=== PATIENT | male | born 1985 | race Caucasian/White ===

== ENCOUNTER 2020-12-03 13:28 | Emergency (ER) | payer OTHER, SELFPAY ==
[2020-12-03 13:53] VITALS: BP 151/98; PULSE 99; RESP 20; TEMP 36.7; O2SAT 97
--- NOTE | 2020-12-03 14:17 | ED.SKABFB ---
HPI - Skin/Abscess/Foreign Bdy General Chief complaint: Skin/Abscess/Foreign Body Stated complaint: Possible staph infection Source: patient Mode of arrival: ambulatory Limitations: no limitations History of Present Illness HPI narrative: This is a 35-year-old gentleman that has some skin lesions with no drainage with erythema located on his chest area, the patient does shave his chest and does not have any fever or chills currently no drainage from the abscess sites with no shortness of breath no nausea vomiting no abdominal pain. MD complaint: abscess/boil Onset (ago): day(s) Location: chest Severity: mild Review of Systems Review of Systems: All systems reviewed & are unremarkable except as noted in HPI and below PMFSH Past Medical History Medical History Patient denies medical problems Social History Social History Gender identity (if verbalized by the patient): Male Exam Const: General: no acute distress Orientation/consciousness: patient oriented x3 HENMT: Head: normal to inspection Eyes: Conjunctivae: conjunctivae normal Pupils: Equal, round and reactive pupils present Direct Ophthalmoscopy: no photophobia Neck: Neck: normal visual inspection, no lymphadenopathy and no meningeal signs Chest: Chest palpation & inspection: normal inspection of the chest Resp: Effort & Inspection: normal respiratory effort Auscultation: clear to auscultation bilaterally Cardio: Rate: regular rate Rhythm: regular rhythm GI: Inspection: distended Back/Spine/Pelvis: Back: no CVA tenderness Skin: Other: abscess areas on his chest area with no drainage with an area of erythema. Neuro: General: patient oriented x3 Extrem: General: normal to inspection and no pedal edema Psych: Mental Status: mental status grossly normal Affect: normal affect Course Course Emergency Course: Patient received IM ceftriaxone and triple antibiotic ointment Vital Signs Vital signs: Vital Signs Temperature 36.7 C 12/03/20 13:53 Pulse Rate 99 12/03/20 13:53 Respiratory Rate 12/03/20 13:53 Blood Pressure 151/98 H 12/03/20 13:53 Pulse Oximetry 97 12/03/20 13:53 Temperature 36.7 C 12/03/20 13:53 Pulse Rate 99 12/03/20 13:53 Respiratory Rate 20 12/03/20 13:53 Blood Pressure 151/98 H 12/03/20 13:53 Pulse Oximetry 97 12/03/20 13:53 Critical Care Time Critical Care Time Critical Care Time: No Discharge Plan Discharge Clinical Impression: Folliculitis Patient Disposition: Home, Self-Care Condition: Stable Instructions: Antibiotic Form, Folliculitis (ED) Additional Instructions: take medicine as prescribed and follow-up with primary care physician within 1 to 2 weeks if symptoms persist or worsen. Prescriptions: New amoxicillin-pot clavulanate [Augmentin] 875-125 mg tablet 1 tablet PO Q12H Qty: 20 RF: 0 mupirocin 2 % ointment 1 applic topical TID 7 Days Qty: 15 RF: 0 Follow-up/Referrals: UNKNOWN,DOCTOR [Primary Care Provider] - Time of Disposition: 14:24
[2020-12-03] MEDS: LIDOCAINE HCL 1% LOCAL INJ 20 ML VIAL (14:28)
[2020-12-03] MEDS: cefTRIAXone 1 GM VIAL IM (14:28)
[2020-12-03] MEDS: NEOMYCIN/POLYMYXIN/BACITRACIN OINTMENT PACKET 1 PACKET TOPICAL (14:28)
[2020-12-03 14:52] VITALS: BP 134/88; PULSE 94; RESP 20; TEMP 36.8; O2SAT 98
== END 2020-12-03 15:09 | disposition home or self-care (01) ==
PROVIDERS: Emergency Provider Emergency Medicine
DX: L73.9 Follicular disorder, unspecified (principal)
CPT/HCPCS: 96372; 99283; J0696

== ENCOUNTER 2021-08-06 19:28 | Emergency (ER) | payer OTHER, SELFPAY ==
--- NOTE | 2021-08-06 19:36 | ED.SKABFB ---
HPI - Skin/Abscess/Foreign Bdy General Chief complaint: Extremity Problem,Nontraumatic Stated complaint: bite on leg Time Seen by Provider: 08/06/21 19:33 Source: patient, family and RN notes reviewed Mode of arrival: ambulatory Limitations: no limitations History of Present Illness complaint: insect bite/sting Onset (ago): day(s) (1) Location: RLE (mid posterior calf) Severity: moderate Quality: burning, aching and pruritic Pain Consistency: constant Relieving factors: none Exacerbating factors: palpation Context: other ( possible spider bite) Associated symptoms: denies other symptoms Treatments prior to arrival: other ( scratched at it until it is draining clear fluid) Related Data Home Medications Medication Instructions Recorded Confirmed No Home Medications 08/06/21 08/06/21 Allergies Allergy/AdvReac Type Severity Reaction Status Date / Time No Known Allergies Allergy Verified 12/03/20 14:35 Review of Systems Review of Systems: All systems reviewed & are unremarkable except as noted in HPI and below PMFSH Past Medical History Medical History (Updated 08/06/21 @ 19:51 by Jimmy Early MD) Patient denies medical problems Surgical History Surgical History (Updated 08/06/21 @ 19:37 by Jimmy Early MD) H/O skin graft Social History Social History (Updated 08/06/21 @ 19:37 by Jimmy Early MD) Smoking status: Never smoker Substance use: never Gender identity (if verbalized by the patient): Male Exam Const: General: healthy appearing, no acute distress and alert Nutritional Appearance: well nourished Orientation/consciousness: patient oriented x3 HENMT: Head: normal to inspection Ears: external ears normal Eyes: Conjunctivae: conjunctivae normal Pupils: Equal, round and reactive pupils present EOM: EOMs intact bilaterally Neck: Neck: normal visual inspection Resp: Effort & Inspection: normal respiratory effort Auscultation: clear to auscultation bilaterally Cardio: Rate: regular rate Rhythm: regular rhythm GI: Auscultation: normal bowel sounds Back/Spine/Pelvis: Cervical Spine: cervical ROM normal Thoracic/Lumbar Spine: thoraco-lumbar ROM normal Skin: General skin exam: normal color Lesions: lesion noted wheal right posterior lower leg size (3.5 cm in diameter), borders well-defined, consistency firm, surface indurated, warm and other ( Excoriated with clear serous drainage) and tender Neuro: General: patient oriented x3, moves all extremities, no focal motor deficits and CN's II-XI intact bilaterally Speech: normal speech Gait exam (Neuro): Normal gait present Extrem: General: normal to inspection and no clubbing, cyanosis or edema Psych: Appearance: grossly normal and well kempt Mental Status: mental status grossly normal Affect: normal affect Attitude: cooperative Thought content: Yes Normal thought content present Discharge Plan Discharge Clinical Impression: Spider bite Qualifiers: Encounter type: initial encounter Injury intent: accidental or unintentional Qualified Code(s): T63.301A - Toxic effect of unspecified spider venom, accidental (unintentional), initial encounter Patient Disposition: Home, Self-Care Condition: Stable Instructions: Brown Recluse Spider Bite (ED) Additional Instructions: cool compresses as needed. Can use Benadryl, or Zyrtec 10 mg [id number]( 1 daily). Tylenol and or Motrin as needed for pain. Follow-up with your primary care physician any worsening or changes in appearance. Any thick pus drainage or streaking up the leg return to the emergency room. Prescriptions: No Action No Home Medications RF: 0 Follow-up/Referrals: UNKNOWN,DOCTOR [Primary Care Provider] - Time of Disposition: 19:51
[2021-08-06 19:37] VITALS: BP 140/89; PULSE 100; RESP 20; TEMP 36.4; O2SAT 100
[2021-08-06 19:55] VITALS: BP 136/80; PULSE 90; RESP 18; TEMP 36.6; O2SAT 100
== END 2021-08-06 19:56 | disposition home or self-care (01) ==
PROVIDERS: Emergency Provider Emergency Medicine
DX: T63.301A Toxic effect of unspecified spider venom, accidental (unintentional), initial encounter (principal)
CPT/HCPCS: 99281

== ENCOUNTER 2021-08-08 22:14 | Emergency (ER) | payer OTHER, SELFPAY ==
[2021-08-08 22:18] VITALS: BP 135/78; PULSE 106; RESP 14; TEMP 36.4; O2SAT 100
[2021-08-09] MEDS: HYDROcodone/acetaminophen (*CRX) 5-325 MG TABLET 1 TAB PO (02:22)
[2021-08-09 02:37] VITALS: BP 147/98; PULSE 89; RESP 16; O2SAT 100
--- NOTE | 2021-08-09 03:18 | ED.SKABFB ---
HPI - Skin/Abscess/Foreign Bdy General Chief complaint: Skin/Abscess/Foreign Body <ZAHRA Hampton Last Filed: 08/09/21 03:23> Stated complaint: abscess, spider bite <ZAHRA Hampton Last Filed: 08/09/21 03:23> Time Seen by Provider: 08/09/21 01:27 <ZAHRA Hampton Last Filed: 08/09/21 03:23> History of Present Illness HPI narrative: 36-year-old male here for evaluation of right calf pain and redness with central area of drainage for the past 2 days. States area drained some yellow material yesterday, is now crusted over today. Patient has been trying ibuprofen without good relief of his pain. States he believes he got bit by a spider, although he did not see a spider bite or have any known trauma to the skin. Tetanus up-to-date as of 2 years ago. Denies fevers, chills, nausea, vomiting. No history of diabetes or IV drug use. <ZAHRA Hampton Last Filed: 08/09/21 03:23> Related Data Allergies/Adverse reactions: Allergies Allergy/AdvReac Type Severity Reaction Status Date / Time No Known Allergies Allergy Verified 08/08/21 22:15 <ZAHRA Hampton Last Filed: 08/09/21 03:23> Review of Systems Review of Systems: Gen.: Denies fevers or chills Eyes: Denies eye pain or visual change ENT: Denies congestion Respiratory: Denies shortness of breath or cough CV: Denies chest pain or palpitations GI: Denies abdominal pain nausea, emesis or diarrhea denies burning, urgency, frequency or hematuria Musculoskeletal: Denies back pain or muscle pain Neuro: Denies numbness, tingling, weakness or focal weakness Skin: Reports redness of right calf. Except as documented, all other systems reviewed and negative <ZAHRA Hampton Last Filed: 08/09/21 03:23> Exam Narrative: Gen: Alert, oriented, no acute distress. Eyes: EOMI, no icterus Pulm: Respirations even and unlabored, symmetric thorax expansion, no audible stridor or visible cyanosis CV: No murmurs. Regular rate. GI: No distension, no voluntary/involuntary guarding Neuro: AOx4, moves all extremities without apparent difficulty or weakness, follows commands Skin: Right calf has large area of erythema extending from mid calf down to his foot. There is a round, central opening with yellow crusted serous discharge no underlying wounds or induration. No fluid pocket visualized on [id number] ultrasound. Psych: Normal mood/affect, insight/judgement good, adequate fund of knowledge, recent/remote memory intact <Dena Weeks PA-C - Last Filed: 08/09/21 03:23> Course BITUMASTIC APPLIER/PA Physician Supervision For this patient encounter, I reviewed the BITUMASTIC APPLIER or PA documentation, treatment plan, and medical decision making; and I had [id number] time with this patient. GENERAL: Well-appearing, well-nourished, and in no acute distress. HEAD: Normocephalic, atraumatic. EXTREMITIES: Normal range of motion. 1+ edema RLE SKIN: Warm, dry, no rash. Draining central area of the right calf, surrounding erythema consistent with cellulitis. NEURO: Alert and oriented x3. PSYCH: Normal mood and affect. Bedside ultrasound used and no large fluid-filled pocket. Unable to express pus from the area. No fluctuant abscess palpated. Discharged with Bactrim. <Tarun Cline MD - Last Filed: 08/09/21 04:49> Vital Signs Vital signs: Vital Signs Temperature 97.6 F 08/08/21 22:18 Pulse Rate 106 H 08/08/21 22:18 Respiratory Rate 14 08/08/21 22:18 Blood Pressure 135/78 08/08/21 22:18 Pulse Oximetry 100 08/08/21 22:18 Temperature 97.6 F 08/08/21 22:18 Pulse Rate 89 08/09/21 02:37 Respiratory Rate 16 08/09/21 02:37 Blood Pressure 147/98 H 08/09/21 02:37 Pulse Oximetry 100 08/09/21 02:37 <Dena Weeks PA-C - Last Filed: 08/09/21 03:23> Vital Signs Temperature 97.6 F 08/08/21 22:18 Pulse Rate 106 H 08/08/21 22:18 Respiratory
== END 2021-08-09 02:26 | disposition home or self-care (01) ==
PROVIDERS: Emergency Provider Emergency Medicine; PCP Family Medicine
DX: L03.115 Cellulitis of right lower limb (principal)
CPT/HCPCS: 99283; A9270

== ENCOUNTER 2021-12-26 08:13 | Emergency (ER) | payer OTHER, SELFPAY ==
--- NOTE | 2021-12-26 08:18 | ED.UPPEXIN ---
HPI - Extremity Injury (Upper) General Chief Complaint: Wound/Laceration Stated Complaint: laceration arm Time Seen by Provider: 12/26/21 08:18 History of Present Illness HPI narrative: 36-year-old male patient is here with an accidental cut to the right forearm with a metal piece from an old oven while he was moving it. Patient also experienced some scrapes to the hand and to the right soto area. The bleeding is under control. He denies any numbness or tingling of the hand or fingers. Patient states that he is not up-to-date on his tetanus. denies any other injuries. Related Data Allergies Allergy/AdvReac Type Severity Reaction Status Date / Time No Known Allergies Allergy Verified 08/08/21 22:15 Review of Systems Review of Systems: All systems reviewed & are unremarkable except as noted in HPI and below Exam Narrative: Alert male patient in no acute distress but significantly anxious stable vital signs normal appearing HEENT right forearm is examined. Patient has a 3 cm laceration in the mid forearm volar aspect. The laceration is full-thickness skin. There are no tendons involved. There are no blood vessels involved. Distal radial and ulnar pulses are palpable. The flexion at the wrist, MCP joints and interphalangeal joints is intact. A superficial abrasion is noted to the base of the thumb and the bleeding is controlled. A few abrasions are noted to the anterior soto as well. No active bleeding. The rest of the physical examination is normal.. MDM - Extremity Injury (Upper) MDM Narrative Medical decision making narrative: Wounds have been cleansed. Band-Aids have been applied appropriate places. Tdap has been updated. Laceration after. Has been dressed. The patient is aware of the follow-up instructions. Differential Diagnosis Differential diagnosis: Likely other (deep tissue injury) Discharge Plan Discharge Clinical Impression: Laceration, Forearm laceration Patient Disposition: Home, Self-Care Condition: Stable Instructions: Laceration (ED) Additional Instructions: Keep the area clean and dry Wound recheck with your PCP in 3 days and Suture removal in 7 days Prescriptions: No Action sulfamethoxazole-trimethoprim [Bactrim DS] 800-160 mg tablet 1 tablet PO Q12H Qty: 13 0RF hydrocodone-acetaminophen 5-300 mg tablet 1 tablet PO BID PRN (Reason: pain) Qty: 7 0RF Follow-up/Referrals: UNKNOWN,DOCTOR [Primary Care Provider] - Time of Disposition: 08:58
[2021-12-26] MEDS: TETANUS,DIPHTHERIA,AC PERTUSSIS ADULT 0.5 ML (ADACEL) (08:45)
[2021-12-26 08:48] VITALS: BP 151/102; PULSE 111; RESP 22; TEMP 36.6; O2SAT 97
[2021-12-26 09:07] VITALS: BP 140/84; PULSE 86; RESP 20; TEMP 36.8; O2SAT 97
--- NOTE | 2021-12-26 09:11 | PC.NURSE ---
On 12/26/21, the student, [ babak acuna ], provided care and completed [facility] documentation on this patient. I have reviewed the student's documentation and agree with the findings.
== END 2021-12-26 09:07 | disposition home or self-care (01) ==
PROVIDERS: Emergency Provider Emergency Medicine
DX: S51.811A Laceration without foreign body of right forearm, initial encounter (principal); W45.8XXA Other foreign body or object entering through skin, initial encounter
CPT/HCPCS: 12001; 90471; 90715; 99282

== ENCOUNTER 2022-03-24 13:45 | Emergency (ER) | payer OTHER, SELFPAY ==
[2022-03-24 14:06] VITALS: BP 170/93; PULSE 92; RESP 20; TEMP 36.3; O2SAT 97
[2022-03-24 14:09] VITALS: O2SAT 97
[2022-03-24 14:57] LABS: Influenza A QL RT-PCR Negative (Negative); Influenza B QL RT-PCR Negative (Negative); SARS-CoV-2 RNA PCR Negative (Negative)
--- NOTE | 2022-03-24 15:04 | ED.URI ---
HPI - URI/Sore Throat General Chief Complaint: Upper Respiratory Infection Stated Complaint: runny nose/cough/headache Time Seen by Provider: 03/24/22 13:48 Source: patient Mode of arrival: ambulatory Limitations: no limitations History of Present Illness HPI Narrative: this is 36-year-old gentleman presents with fever body aches cough congestion over last 3 to 4 days with no shortness of breath no chest pain does have some nasal discharge some nausea with no vomiting no abdominal pain does have body aches no headache no blurry vision. MD elicited complaint: fever, cough and rhinorrhea Consistency: constant Severity: mild Description of mucous: clear Related Data Home Medications Medication Instructions Recorded Confirmed No Home Medications 08/06/21 03/24/22 Allergies Allergy/AdvReac Type Severity Reaction Status Date / Time No Known Allergies Allergy Verified 03/24/22 14:13 Review of Systems Review of Systems: All systems reviewed & are unremarkable except as noted in HPI and below PMFSH Past Medical History Medical History Patient denies medical problems Surgical History Surgical History H/O skin graft Social History Social History Smoking status: Never smoker Substance use: never Gender identity (if verbalized by the patient): Male Exam Const: General: healthy appearing and no acute distress Nutritional Appearance: well nourished Limitations: no limitations HENMT: Head: normal to inspection Face/Nose/Sinus: Normal external nose present Face and sinus: normal facial exam Eyes: Conjunctivae: conjunctivae normal Pupils: Equal, round and reactive pupils present Neck: Neck: normal visual inspection, no lymphadenopathy and no meningeal signs Chest: Chest palpation & inspection: normal inspection of the chest Resp: Effort & Inspection: normal respiratory effort Auscultation: clear to auscultation bilaterally Cardio: Rate: regular rate Rhythm: regular rhythm GI: GI Palp: Yes Soft to palpation Auscultation: normal bowel sounds : General: Yes bladder normal to palpation Urinary Catheter: Urinary Catheter: patent and draining Back/Spine/Pelvis: Back: no CVA tenderness Skin: General skin exam: normal color Rashes: no rashes Neuro: General: patient oriented x3 and moves all extremities Cranial nerves: Yes Nystagmus not present Speech: normal speech Gait exam (Neuro): Normal gait present Extrem: General: normal to inspection, no clubbing, cyanosis or edema and no pedal edema Psych: Mental Status: mental status grossly normal Affect: normal affect Course Course Emergency Course: Patient received a dose of Zofran and a dose of Tylenol labs reviewed with patient his COVID and influenza negative. Vital Signs Vital signs: Vital Signs Temperature 36.3 C L 03/24/22 14:06 Pulse Rate 92 03/24/22 14:06 Respiratory Rate 20 03/24/22 14:06 Blood Pressure 170/93 H 03/24/22 14:06 Pulse Oximetry 97 03/24/22 14:06 Oxygen Delivery Room Air 03/24/22 14:06 Temperature 36.3 C L 03/24/22 14:06 Pulse Rate 92 03/24/22 14:06 Respiratory Rate 20 03/24/22 14:06 Blood Pressure 170/93 H 03/24/22 14:06 Pulse Oximetry 97 03/24/22 14:09 Oxygen Delivery Room Air 03/24/22 14:09 MDM - URI/Sore Throat Lab Data Labs: Lab Results 03/24/22 Range/Units 14:10 Influenza A (RT-PCR) Negative (Negative) Influenza B (RT-PCR) Negative (Negative) SARS-CoV-2 RNA (RT-PCR) Negative (Negative) Critical Care Time Critical Care Time Critical Care Time: No Discharge Plan Discharge Clinical Impression: Viral infection Patient Disposition: Home, Self-Care Condition: Stable Instructions: Antibiotic Form, Viral Syndrome (ED) Additional Instructions: Advise
[2022-03-24] MEDS: ONDANSETRON HCL ODT 4 MG TABLET PO (15:39)
[2022-03-24] MEDS: ACETAMINOPHEN 500 MG TABLET 1000 MG PO (15:39)
[2022-03-24 15:43] VITALS: BP 170/93; PULSE 88; RESP 20; TEMP 36.7; O2SAT 98
== END 2022-03-24 15:53 | disposition home or self-care (01) ==
PROVIDERS: Emergency Provider Emergency Medicine
DX: B34.9 Viral infection, unspecified (principal); Z20.822 Contact with and (suspected) exposure to COVID-19
CPT/HCPCS: 87636; 99283; A9270

== ENCOUNTER 2023-11-14 14:32 | Emergency (ER) | payer OTHER, SELFPAY ==
--- NOTE | ~2023-11-14 | XR_ITS ---
EXAM: XR foot LT min 3V DATE: 11/14/2023 14:58 HISTORY: object fell,dorsum aspect (2-4), discoloration/swollenXtoday . COMPARISON: None available. FINDINGS: Normal mineralization. No fracture or dislocation. No lytic or blastic lesion. Achilles en thesopathy. No erosion or periosteal change. Forefoot soft tissue swelling. IMPRESSION: No acute osseous finding in the left foot. Reviewed, dictated and finalized at location K.
--- NOTE | ~2023-11-14 | CT_ITS ---
EXAMINATION: CT foot LT wo con DATE: 11/14/2023 15:46 INDICATION: Left foot injury. TECHNIQUE: Computed tomography (CT) of the left foot was performed without intravenous contrast. Auto mated exposure control and iterative reconstruction technique were employed. The dose-length product was 369.97 mGy-cm. COMPARISON: Left foot radiograph 11/14/23 FINDINGS: Bone alignment is normal. No fracture. Joint spaces are normal. There is an enthesophyte at the posterior aspect of calcaneal tuberosity. There is soft tissue swelling of the dorsal of the tyler t. IMPRESSION: 1. No fracture. Reviewed, dictated and finalized at location A. IMPRESSION: 1. No fracture.
[2023-11-14 14:36] VITALS: BP 168/92; PULSE 67; RESP 18; TEMP 36.3; O2SAT 96
--- NOTE | 2023-11-14 14:39 | ED.LOWEXIN ---
HPI - Extremity Injury (Lower) General Chief Complaint: Extremity Injury, Lower Stated Complaint: left foot injury Source: patient Mode of arrival: ambulatory Limitations: no limitations History of Present Illness HPI Narrative: Patient is a 38-year-old male with a heavy concrete block falling onto his left foot prior to arrival. He has swelling and pain of the left foot dorsal aspect. complaint: foot injury Onset (ago): hour(s) (1) Injury: Left: foot Type of Injury: blunt Place: work Severity: moderate Severity scale (1-10): 4 Relieving factors: cold therapy and immobilization Exacerbating factors: weight bearing, movement and palpation Context: direct blow Associated symptoms: swelling and able to partially bear weight Other symptoms: none Related Data Home Medications Medication Instructions Recorded Confirmed buprenorphine 8 mg-naloxone 2 mg 0.5 film buccal BID 11/14/23 11/14/23 sublingual film Allergies Allergy/AdvReac Type Severity Reaction Status Date / Time No Known Allergies Allergy Verified 11/14/23 14:37 Review of Systems Review of Systems: All systems reviewed & are unremarkable except as noted in HPI and below Constitutional: Constitutional: Reports no additional constitutional complaints Eyes: Eyes: Reports no additional eye complaints ENT: Reports system reviewed and no additional complaints, except as documented Cardiovascular: Cardiovascular: Reports no additional cardiovascular complaints Respiratory: Respiratory: Reports no additional respiratory complaints Gastrointestinal: Gastrointestinal: Reports no additional gastrointestinal complaints Genitourinary: Genitourinary: Reports no additional male genitourinary complaints Musculoskeletal: Musculoskeletal: Reports no additional musculoskeletal complaints Integumentary/Breasts: Skin/Breast: Reports system reviewed and no additional complaints, except as docu Neurologic: Reports system reviewed and no additional complaints, except as documented Psychiatric: Psychiatric: Reports no additional psychiatric complaints Endocrine: Endocrine: Reports no additional endocrine complaints Hematologic/Lymphatic: Hematologic/Lymphatic: Reports no additional hematologic/lymphatic complaints Allergic/Immunologic: Allergic/Immunologic: Reports no additional allergic/immunologic complaints PMFSH Past Medical History Medical History Patient denies medical problems Surgical History Surgical History H/O skin graft Social History Social History Smoking status: Never smoker Substance use: never Gender identity (if verbalized by the patient): Male Exam Const: General: healthy appearing Nutritional Appearance: well nourished Orientation/consciousness: patient oriented x3 HENMT: Head: normal to inspection Ears: external ears normal Face/Nose/Sinus: Normal external nose present Eyes: Conjunctivae: conjunctivae normal Pupils: Equal, round and reactive pupils present EOM: EOMs intact bilaterally Neck: Neck: normal visual inspection Chest: Chest palpation & inspection: normal inspection of the chest Resp: Effort & Inspection: normal respiratory effort and not labored Auscultation: clear to auscultation bilaterally Cardio: Rate: regular rate Rhythm: regular rhythm Heart sounds: no murmurs GI: Inspection: non-distended GI Palp: Yes Soft to palpation, No Tenderness to palpation present (GI) and No Guarding due to palpation present (GI) Auscultation: normal bowel sounds : General: Yes bladder normal to palpation Back/Spine/Pelvis: Back: no CVA tenderness Skin: General skin exam: normal color Rashes: no rashes Wounds: wound noted Other: Left foot dorsal surface mid foot has white area of most of the dorsum with swelling and ecchymosis and erythe
[2023-11-14 14:43] VITALS: BP 168/92; PULSE 67; RESP 18; TEMP 36.3; O2SAT 96
== END 2023-11-14 16:02 | disposition home or self-care (01) ==
PROVIDERS: Emergency Provider Emergency Medicine
DX: S93.602A Unspecified sprain of left foot, initial encounter (principal); W20.8XXA Other cause of strike by thrown, projected or falling object, initial encounter
CPT/HCPCS: 73630; 73700; 99284